=== PATIENT | female | born 2000 | race Caucasian/White ===

== ENCOUNTER 2022-07-07 06:52 | Day surgery (SDC) | payer SELFPAY, OTHER ==
[2022-07-07] VITALS (7 sets, daily range): BP systolic 92–97; BP diastolic 52–65; PULSE 47–67; RESP 18; TEMP 36.3–37.6; O2SAT 94–98; BMI 28.3
--- NOTE | 2022-07-07 | COLBX_PTH ---
PATIENT: BELL BENITEZ LOC: EN U#:[id number] AGE/SX: 22/F ROOM: RE07/07/[address]: Dr. Arsen Mo DO : 2000 BED: DIS: 07/07/2022 SPEC #: [id number] RECD: 07/07/22 11:50 STATUS: KM HAMZAH #: [id number] SABA: 07/07/22 00:[address]: Arsen Mo DEPT: SURGICAL PATHOLOGY RECD BY: Shashank Tucker ENTERED: 07/07/22 11:50 SP TYPE: COLON BX MARANDA DR: Dr. Terra Sanchez MD Tissues: A - Ileum, NOS B - COLON BIOPSY Procedures: Surgery Specimen Level IV HEADER OPERATION: Colonoscopy (MAC) with biopsies PRE-OP DIAGNOSIS: Abdominal pain TISSUE SUBMITTED: A ? Terminal ileum biopsy, B ? Random colon biopsies MICROSCOPIC DIAGNOSIS A. Terminal ileum, biopsy: No pathologic change. B. Colon, random biopsy: Melanosis coli. AM:cora 07/08/2022 MICROSCOPIC DESCRIPTION Slides are reviewed. GROSS DESCRIPTION A - Received in fixative is one container labeled with the patient's name and designated terminal ileum biopsy. The specimen consists of multiple irregular fragments of light rollins soft tissue that in aggregate measure 1.5 x 0.3 x 0.1 cm. The specimen is totally submitted in one cassette. B - Received in fixative is one container labeled with the patient's name and designated random colon biopsy. The specimen consists of multiple irregular fragments of light rollins soft tissue that in aggregate measure 2 x 1 x 0.1 cm. The specimen is totally submitted in one cassette. / SJ:cora 07/07/2022 TC:5 CPT: 12131 x2
--- NOTE | 2022-07-07 07:11 | HP.PCM_ITS ---
History and Physical Date of Admission: 07/07/22 BELL BENITEZ, is a 21 F who presents to the office today for Initial consult. Bell established with this clinic 05.09.22. She has been having difficulty with abdominal/flank pain right extending into mid abdomen (improved since onset) worse than left (left side has resolved) present daily and most of the day since the beginning in January with progression of severity with no alleviation with pain medication. BM vary between no BM for 4-5 days and then diarrhea since childhood without known blood or mucus, though Bell is independent with the bathroom, mother provided history. PMH anxiety, developmental delay, abnormal reflexes and coordination, oropharyngeal dysphagia, constipation. Xray abd 02.10.22 [facility] noting air-fluid levels in right colon without dilation suggestive of ileus. US abdomen complete 02.14.22 [facility] with no acute or chronic abnormality. CT abd/pel [facility] 02.27.22 without acute or chronic abnormality.? ROS Const Constitutional: No anorexia, fatigue, fever(s), weight change or sleep problems Eyes Eyes: No change in vision ENT ENT: No abnormal hearing, difficulty swallowing, mouth lesions, tongue swelling or throat swelling Resp Respiratory: No cough or shortness of breath Cardio Cardiology: No chest pain at rest, chest pain with exertion, shortness of breath or dyspnea on exertion Gastro GI: No difficulty swallowing Genitourinary-Female: No difficulty urinating or burning urination Musc Musculoskeletal: No joint pain, joint swelling, muscle weakness or decreased mus klever mass Skin Skin: No hair loss in leg, yellowing of the eye, itchy eyes, rash, skin ulcer or skin swelling Neuro Neurology: No abnormal hearing, abnormal movements, confusion, unsteady gait/balance or memory loss Psych Psychiatric: No anxiety, No confusion and No memory loss Endo Endocrine: No fatigue or weight change Aller/Imm Allergy/Immunologic: No itchy eyes, throat swelling or tongue swelling Salbador/Lymp Hematologic/Lymphatic: No easy bleeding, easy bruising or enlarged lymph nodes Exam Const General: cooperative and comfortable Nutritional Appearance: average body habitus and well nourished HENGA Head: normal to inspection Ears: hearing grossly normal bilaterally Nose: external nose normal Face and sinus: normal facial exam Mouth: oral mucosae normal Throat: posterior oropharynx normal Eyes General: appearance normal, both eyes and all related structures Neck Neck: normal visual inspection Chest Chest palpation & inspection: normal inspection of the chest and normal palpation of entire chest wall Resp Effort & Inspection: normal respiratory effort Auscultation: Bilateral: Clear to Auscultation Cardio Palpation: normal PMI Rate: regular rate Rhythm: regular rhythm GI Inspection: normal to inspection Auscultation: normal bowel sounds Percussion: normal to percussion Palpation: no hepatosplenomegaly Skin General: no rashes or lesions noted Neuro General: patient alert Extrem General: normal to inspection Psych Affect: normal affect Assessment and Plan Assessment and Plan (1) Abdominal pain: ?Status:?Acute ?Plan: The differential diagnosis for her abdominal pain include IBS with constipation, chronic idiopathic constipation, Hirschsprung's disease.? She will undergo colonoscopy for evaluation of the entire GI tract and distal small bowel possible.? Her mother were explained alternatives, risk, benefits including outstanding bleeding, infection, sepsis, perforation, need for emergent .? She will have an ASA of 1. ? ? ? Orders: Orders Colonoscopy 07/07/22E R10.9 - Unspecified abdominal pain ? BELL BENITEZ, is a 21 F who presents to the office today for Initial consult. Bell established with this clinic 05.09.22. She has been having difficulty with abdominal/flank pain right extending into mid abdomen (improved since onset) worse than left (left side has resolved) present daily and most of the day since the beginning in January with progression of severity with no alleviation with pain medication. BM vary between no BM for 4-5 days and then diarrhea since childhood without known blood or mucus, though Bell is independent with the bathroom, mother provided history. PMH anxiety, developmental delay, abnormal reflexes and coordination, oropharyngeal dysphagia, constipation. Xray abd 02.10.22 [facility] noting air-fluid levels in right colon without dilation suggestive of ileus. US abdomen complete 02.14.22 [facility] with no acute or chronic abnormality. CT abd/pel [facility] 02.27.22 without acute or chronic abnormality.? ROS Const Constitutional: No anorexia, fatigue, fever(s), weight change or sleep problems Eyes Eyes: No change in vision ENT ENT: No abnormal hearing, difficulty swallowing, mouth lesions, tongue swelling or throat swelling Resp Respiratory: No cough or shortness of breath Cardio Cardiology: No chest pain at rest, chest pain with exertion, shortness of breath or dyspnea on exertion Gastro GI: No difficulty swallowing Genitourinary-Female: No difficulty urinating or burning urination Musc Musculoskeletal: No joint pain, joint swelling, muscle weakness or decreased muscle mass Skin Skin: No hair loss in leg, yellowing of the eye, itchy eyes, rash, skin ulcer or skin swelling Neuro Neurology: No abnormal hearing, abnormal movements, confusion, unsteady gait/b alance or memory loss Psych Psychiatric: No anxiety, No confusion and No memory loss Endo Endocrine: No fatigue or weight change Aller/Imm Allergy/Immunologic: No itchy eyes, throat swelling or tongue swelling Salbador/Lymp Hematologic/Lymphatic: No easy bleeding, easy bruising or enlarged lymph nodes Exam Const General: cooperative and comfortable Nutritional Appearance: average body habitus and well nourished [facility] Head: normal to inspection Ears: hearing grossly normal bilaterally Nose: external nose normal Face and sinus: normal facial exam Mouth: oral mucosae normal Throat: posterior oropharynx normal Eyes General: appearance normal, both eyes and all related structures Neck Neck: normal visual inspection Chest Chest palpation & inspection: normal inspection of the chest and normal palpation of entire chest wall Resp Effort & Inspection: normal respiratory effort Auscultation: Bilateral: Clear to Auscultation Cardio Palpation: normal PMI Rate: regular rate Rhythm: regular rhythm GI Inspection: normal to inspection Auscultation: normal bowel sounds Percussion: normal to percussion Palpation: no hepatosplenomegaly Skin General: no rashes or lesions noted Neuro General: patient alert Extrem General: normal to inspection Psych Affect: normal affect Assessment and Plan Assessment and Plan (1) Abdominal pain: ?Status:?Acute ?Plan: The differential diagnosis for her abdominal pain include IBS with constipation, chronic idiopathic constipation, Hirschsprung's disease.? She will undergo colonoscopy for evaluation of the entire GI tract and distal small bowel possible.? Her mother were explained alternatives, risk, benefits including outstanding bleeding, infection, sepsis, perforation, need for emergent .? She will have an ASA of 1. ? ? ? Orders: Orders Colonoscopy 07/07/22 R10.9 - Unspecified abdominal p ain ? I have examined the patient and the H&P has been reviewed. There are no clinical changes since date of exam.
--- NOTE | 2022-07-07 08:19 | OP.COLON_ITS ---
Patient Name: Katharine Robison Procedure Date: 07/07/2022 7:48 AM Date of : 2000 Age: 22 Procedure: Colonoscopy Indications: Abdominal pain in the right lower quadrant, Abnormal CT of the GI tract Providers: Arsen Mo DO Referring MD: Terra Sanchez Medicines: Monitored Anesthesia Care Patient Profile: This is a 22 year old female. Refer to note in patient chart for documentation of history and physical. Last Colonoscopy: none. The patient's first colonoscopy is today. Complications: No immediate complications. Procedure: Pre-Anesthesia Assessment: - Prior to the procedure, a History and Physical was performed, and patient medications and allergies were reviewed. The patient is competent. The risks and benefits of the procedure and the sedation options and risks were discussed with the patient. All questions were answered and informed consent was obtained. Patient identification and proposed procedure were verified by the physician in the pre-procedure area. Mental Status Examination: alert and oriented. Airway Examination: normal oropharyngeal airway and neck mobility. Respiratory Examination: clear to auscultation. CV Examination: normal. Prophylactic Antibiotics: The patient does not require prophylactic antibiotics. Prior Anticoagulants: The patient has taken no previous anticoagulant or antiplatelet agents. ASA Grade Assessment: II - A patient with mild systemic disease. After reviewing the risks and benefits, the patient was deemed in satisfactory condition to undergo the procedure. The anesthesia plan was to use monitored anesthesia care (MAC). Immediately prior to administration of medications, the patient was re-assessed for adequacy to receive sedatives. The heart rate, respiratory rate, oxygen saturations, blood pressure, adequacy of pulmonary ventilation, and response to care were monitored throughout the procedure. The physical status of the patient was re-assessed after the procedure. After I obtained informed consent, the scope was passed under direct vision. Throughout the procedure, the patient's blood pressure, pulse, and oxygen saturations were monitored continuously. The pediatric colonoscope was introduced through the anus and advanced to the terminal ileum. The colonoscopy was performed without difficulty. The patient tolerated the procedure well. The quality of the bowel preparation was good. Scope In: 7:53:49 AM Scope Withdrawal Time 0 hours 7 minutes 50 seconds Scope Out: 8:09:20 AM Total Procedure Duration Time 0 hours 15 minutes 31 seconds Findings: A diffuse area of severe melanosis was found in the entire colon. Biopsies were taken with a cold forceps for histology. Verification of patient identification for the specimen was done. Estimated blood loss was minimal. The terminal ileum appeared normal. Biopsies were taken with a cold forceps for histology. Verification of patient identification for the specimen was done. Estimated blood loss was minimal. Retroflexion in the rectum was not performed due to abnormal anatomy. There was a very poor rectal tone noted. Impression: - Melanosis in the colon. Biopsied. - The examined portion of the ileum was normal. Biopsied. Recommendation: - Discharge patient to home. - Resume previous diet. - Continue present medications. - Await pathology results. - Repeat colonoscopy in 5 years for surveillance based on pathology results. Procedure Code(s): --- Professional --- 88576, Colonoscopy, flexible; with biopsy, single or multiple CPT copyright 2017 [employer]. All rights reserved. The codes documented in this report are preliminary and upon sql architect review may be revised to meet current compliance requirements. Arsen Mo DO 07/07/2022 8:18:58 AM This report has been signed electronically. Number of Addenda: 0 Note Initiated On: 07/07/2022 7:48 AM
--- NOTE | 2022-07-07 08:20 | OP.CCLET_ITS ---
07/07/2022 Terra Sanchez [id number] [address] [address] Re : Colonoscopy procedure for Katharine Robison Dear Dr. Sanchez This procedure was performed on Thursday, July 07, 2022. My impressions and recommendations are as follows: Impressions : - Melanosis in the colon. Biopsied. - The examined portion of the ileum was normal. Biopsied. Recommendations : - Discharge patient to home. - Resume previous diet. - Continue present medications. - Await pathology results. - Repeat colonoscopy in 5 years for surveillance based on pathology results. My findings are described in the full procedure note, which is enclosed. If I can be of further assistance, please feel free to contact me at . Sincerely, Arsen Friend, 07/07/2022 8:18:58 AM This report has been signed electronically.
== END 2022-07-07 09:17 | disposition home or self-care (01) ==
LOC: EN 07:03 → AC 07:04
PROVIDERS: PCP Pediatrics; Referring Provider Pediatrics; Visit Provider Internal Medicine Gastroenterology
PROC: 0DJD8ZZ Inspection of Lower Intestinal Tract, Via Natural or Artificial Opening Endoscopic (ICD-10-PCS; CPT 45378; principal; 2022-07-07 07:55)
DX: K63.89 Other specified diseases of intestine (principal); F41.9 Anxiety disorder, unspecified; Z79.899 Other long term (current) drug therapy
CPT/HCPCS: 45380; 88305; J7120; J2405